=== PATIENT | female | born 1945 | race Caucasian/White ===

== ENCOUNTER → 2019-05-31 | Outpatient (CLI) | payer OTHER ==
[~2019-05-31] MED LIST: ASPIR 8181 MG PO; ASPIRIN; BRILINTA90 MG PO; CIPRO250 M1 PO; CLARITIN10 M2; CLARITIN10 MG PO; CO Q-10100 M1 PO; EYE DROPS FOR GLAUCO; FISH OIL 1,0001 EAC5; FISH OIL 1,2001 EAC5 PO; IMDUR 30 MG TAB30 M1 PO; LIPITOR 20 MG T20 M1 PO; LOPRESSOR25 PO; LUMIGAN2.5 M1 OP; NITROGLYCERIN0.4 MG SUBLING; ONE DAILY MUL400 MCG PO; OSTEOPOROSIS MED; PRILOSEC20 MG PO; TRIAMCINOLONE A80 G2 TOP; VITAMINS
--- NOTE | 2019-05-31 16:34 | CARDNUC ---
[place] [address] CARDIAC NUCLEAR IMAGING REPORT Name: AMANDEEP DARDEN Room: [facility]#: [id number] Admission: 05/31/19 Attend Phys: Magaly Tidwell Discharge: Date of : 45 Date of Service: 05/31/19 1634 Report #: [id number] THIS REPORT FOR: //name// APPROVED REPORT Imaging Protocol: Rest Tc-99m/Stress Tc-99m 1 day Study performed: 05/31/2019 08:00:00 Indication: CAD s/p PCI Patient Location: Out-Patient Room #: 5 Stress Tech: Tim Dumont Stress Nurse: Renu Elise RN NM Tech:ROBERT Lopez Ht: 5 ft 5 in Wt: 154 lbs BSA: 1.77 m2 BMI: 25.62 Medical History Medical History: CAD s/p stent, HTN, Hyperlipidemia. Medications: Atorvastatin, Isosorbide, Metoprolol, Nitrostat, ASA 81 mg. Allergies: morphine Cardiac Risk Factors: Age, FHX of CAD, HTN, Hyperlipidemia. Previous Cardiac Procedures: PCI Pretest Chest Pain Characteristics: No chest pain Exercise History: Physically active Physical Disabilities: Knees Meds Held (24 hrs): Isosorbide, Metoprolol, Nitrostat. Resting Data Rest SPECT myocardial perfusion imaging was performed in supine position 30 minutes following the intravenous injection of 11.3 mCi of Tc-99m Sestamibi. Time of rest injection: 809 Date: 05/31/2019 The images were gated to evaluate regional wall motion and calculate left ventricular ejection fraction. Administration Route: IV Administration Site: Right AC Exercise Stress At peak stress, the patient was injected intravenously with 33.3mCi of Tc-99m Sestamibi. Time of stress injection: 944 Date: 05/31/2019 Administration Route: [place] [address] CARDIAC NUCLEAR IMAGING REPORT Name: AMANDEEP DARDEN Room: [facility]#: [id number] Admission: 05/31/19 Attend Phys: Magaly Tidwell Discharge: Date of : 45 Date of Service: 05/31/19 1634 Report #: [id number] Administration Site: Right AC Gated Stress SPECT was performed 30 minutes after stress injection. The images were gated to evaluate regional wall motion and calculate left ventricular ejection fraction. Prone imaging was performed. Stress Test Details Stress Test: Exercise stress testing was performed using a Rory protocol. HR Max Heart Rate (APMHR): 146 bpm Resting HR: 67 bpm Target HR (85% APMHR): 124 bpm Max HR Achieved: 152 bpm % of APMHR: 104 Recovery HR: 77 bpm BP Resting BP: 138/74 mmHg Max BP: 218/105 mmHg Recovery BP: 134/97 mmHg ECG Resting ECG: Sinus Rhythm, LBBB Stress ECG: Sinus Tachycardia ST Change: None Arrhythmia: None Recovery ECG: Sinus Rhythm, LBBB Recovery ST Change: None Recovery Arrhythmia: None Clinical Reason for Termination: Completed protocol, Maximal effort, Target HR achieved. Stress Symptoms: Leg Fatigue, Dyspnea. Exercise duration: 7 min 31 sec Exercise capacity: 9.40 METs Overall Exercise Capacity for Age: Superior The patient tolerated status Rory protocol exercise without significant difficulty. The patient had no cardiac symptoms with standard Rory protocol exercise. Nurse Comments A 74 year old active female presented for Rory Protocol Nuclear Stress test r/t s/p PCI. Patient tolerated treadmill well. Exercise capacity - Superior. Recovery unremarkable. Patient was escorted by staff to Nuclear Medicine for images. [place] [address] CARDIAC NUCLEAR IMAGING REPORT Name: AMANDEEP DARDEN Room: [facility]#: [id number] Admission: 05/31/19 Attend Phys: Magaly Tidwell Discharge: Date of : 45 Date of Service: 05/31/19 1634 Report #: [id number] complaints at that time. Stress ECG Conclusion Baseline 12-lead EKG showed sinus rhythm with left bundle branch block. EKGs obtained during and post exercise showed sinus rhythm and sinus tachycardia with no significant ST or T wave changes when compared baseline. There were no stress-induced arrhythmias. Study Quality Study: Good Artifact: No artifact Study Data At rest, the left ventricular ejection fraction was 71%.. Post stress, the left ventricular ejection was 72%.. TID = 0.90. Perfusion Normal left ventricular perfusion. Wall Motion Normal left ventricular wall motion. Nuclear Conclusion ECG Findings: negative for ischemia Clinical Findings: negative for ischemia Nuclear Findings: negative for ischemia Exercise Capacity: normal Left Ventricular Function: normal Risk Study: low Myocardial perfusion images show no defect to suggest infarct or ischemia. Left ventricular systolic function appears normal on gated studies. This is a low risk study. <Conclusion> Baseline 12-lead EKG showed sinus rhythm with left bundle branch block. EKGs obtained during and post exercise showed sinus rhythm and sinus tachycardia with no significant ST or T wave changes when compared baseline. There were no stress-induced arrhythmias. <ELECTRONICALLY SIGNED> By: Mark Ray MD, FACC 05/31/19 1634 1634 1634 Mark Ray MD, FACC /INF
== END ==
LOC: M.NUC 12-15 11:50 → M.CRD 05-24 09:00 → M.NUC 05-24 10:00
DX: I25.10 Atherosclerotic heart disease of native coronary artery without angina pectoris (principal); I10 Essential (primary) hypertension; E78.5 Hyperlipidemia, unspecified; Z79.899 Other long term (current) drug therapy; Z95.5 Presence of coronary angioplasty implant and graft; Z88.5 Allergy status to narcotic agent

== ENCOUNTER → 2019-07-27 | Outpatient (CLI) | payer OTHER | LOC: M.RAD 10:34 | DX: Z12.31 Encounter for screening mammogram for malignant neoplasm of breast (principal) ==

== ENCOUNTER → 2019-08-01 | Outpatient (CLI) | payer OTHER | LOC: M.ULTRA 13:46 | DX: N63.21 Unspecified lump in the left breast, upper outer quadrant (principal) ==

== ENCOUNTER → 2019-09-07 | Outpatient (CLI) | payer OTHER | LOC: M.RAD 14:27 | DX: M51.36 Other intervertebral disc degeneration, lumbar region (principal); M85.88 Other specified disorders of bone density and structure, other site ==

== ENCOUNTER → 2020-05-16 | Outpatient (CLI) | payer OTHER | LOC: M.RAD 10:05 | PROVIDERS: ATTEND Registered Nurse Diabetes Educator | DX: S92.355A Nondisplaced fracture of fifth metatarsal bone, left foot, initial encounter for closed fracture (principal); S99.922A Unspecified injury of left foot, initial encounter; M19.072 Primary osteoarthritis, left ankle and foot; X58.XXXA Exposure to other specified factors, initial encounter; Y93.89 Activity, other specified; Y92.89 Other specified places as the place of occurrence of the external cause; Y99.8 Other external cause status ==

== ENCOUNTER → 2021-07-01 | Outpatient (CLI) | payer OTHER | LOC: M.RAD 06-21 15:49 | PROVIDERS: ATTEND Internal Medicine | DX: Z12.31 Encounter for screening mammogram for malignant neoplasm of breast (principal); M81.0 Age-related osteoporosis without current pathological fracture; Z78.0 Asymptomatic menopausal state ==

== ENCOUNTER 2021-09-19 12:22 | Observation (INO) | payer OTHER ==
[~2021-09-19] VITALS: Ht 165.1 cm; Wt 74.8 kg
[2021-09-19] VITALS (18 sets, daily range): BP systolic 101–159; BP diastolic 53–89
--- NOTE | ~2021-09-19 | H ---
[address] [address] HISTORY AND PHYSICAL Name: BRENNON DARDENADALBERTO FORD Room: [address] Shweta Esquivel#: [id number] Admission: 09/19/21 Attend Phys: Edgar Wilkinson MD, Discharge: 09/20/21 Date of : 45 Report #: [id number] THIS REPORT FOR: cc: Joe Barnard MD, Meng MD [facility],Medical Records Staff ~ Please refer to the History and Physical performed in the physician's office. By: 1036Medical Records Staff MALCOLM /SNEHAL
[2021-09-19 13:11] LABS: HEMATOCRIT 45.1 % (37.0-47.0); HEMOGLOBIN 14.9 gm/dL (12.0-15.0); MCH 29.6 pg (26.0-34.0); MCV 89.8 fL (80.0-100.0); MPV 8.1 fl. (7.2-11.1); RBC 5.02 mil/uL (4.20-5.00); RDW-CV 14.1 % (10.5-14.5); WBC 6.2 thou/uL (4.0-11.0)
[2021-09-19] MEDS ORDERED: ASA81BEC PO (13:21)
[2021-09-19] MEDS ORDERED: TOPROL XL25 MG PO (13:25)
[2021-09-19] MEDS ORDERED: DORZOLAMIDE-TI1 EACH EA. EYE (13:28)
[2021-09-19] MEDS ORDERED: VITAMIN D310 MCG PO (13:30)
[2021-09-19 13:33] LABS: APTT 26.8 Seconds (25.0-31.3); PROTIME 10.5 Seconds (9.20-11.50)
[2021-09-19 14:36] LABS: ALBUMIN 3.9 g/dL (3.4-5.0); ALKALINE PHOSPHATASE 162 U/L (46-116); ANION GAP 10 mmol/L (7-16); BUN 11 mg/dL (7-18); CHLORIDE 106 mmol/L (98-107); CO2 26 mmol/L (21-32); CREATININE 0.6 mg/dL (0.6-1.3); GLUCOSE 105 mg/dL (70-99); SGOT 34 U/L (15-37); SODIUM 142 mmol/L (136-145); TOTAL BILIRUBIN 1.1 mg/dL (<0.1-1.0); TOTAL PROTEIN 7.4 g/dL (6.4-8.2); TRIGLYCERIDE 79 mg/dL (<150); VLDL 16 mg/dL (<40)
[2021-09-19 14:37] LABS: SERUM ASSESSMENT Clear
[2021-09-19 14:43] LABS: CALCIUM 9.1 mg/dL (8.5-10.1); CHOLESTEROL 153 mg/dL (<200); HDL CHOLESTEROL 75 mg/dL (>40); SGPT < 6 U/L (30-65)
[2021-09-19 14:46] LABS: LDL CHOLESTEROL 63 mg/dL (<100)
--- NOTE | 2021-09-19 16:16 | EKG ---
[place] [address] ELECTROCARDIOGRAM REPORT Name: AMANDEEP DARDEN Room: [address] M.R.#: [id number] Admission: 09/19/21 Attend Phys: Magaly Tidwell Discharge: Date of : 45 Date of Service: 09/19/21 1337 Report #: [id number] THIS REPORT FOR: //name// [facility] Test Date: 2021-09-19 Test Time: 13:37:40 Pat Name: AMANDEEP DARDEN Department: Room: [facility] Gender: F 1[address] [employer] On Web Press: : 1945 Requested By: Edgar Wilkinson Order Number: [id number] Yessi MD: Edgar iWlkinson Measurements Intervals [place] Rate: 67 P: 33 CA: 213 QRS: -65 QRSD: 133 T: 62 QT: 430 QTc: 454 Interpretive Statements Sinus rhythm Borderline prolonged CA interval Atypical left bundle branch block Compared to ECG 12/21/2015 14:19:13 Intraventricular conduction delay now present Electronically Signed On 09-19-2021 16:16:44 SLITTING AND SHIPPING SUPERVISOR by Edgar Wilkinson [email or web address] <ELECTRONICALLY SIGNED> By: Edgar Wilkinson MD, [facility] 09/19/21 1616 1337 1337 Edgar Wilkinson MD, [facility] /EPI
--- NOTE | 2021-09-19 17:28 | CARD ---
[address] [address] CARDIAC CATH REPORT Name: AMANDEEP DARDEN Room: [address] M.RDamion#: [id number] Admission: 09/19/21 Attend Phys: Edgar Wilkinson MD, Discharge: Date of : 45 Report #: [id number] THIS REPORT FOR: cc: Joe Barnard MD, Meng MD Holkins, John M. MD [facility] ~ APPROVED REPORT Study performed: 09/19/2021 13:53:23 Patient Details Patient Status: Out-Patient Room #: The patient is a 76 year-old female Event Personnel Mark Ray Fire Captain Marine, Randa Bah RN RN, Susu Alvares Scrub, Blanca Maddox RTR Monitor, Edgar Wilkinson Wire Communications Engineer Procedures Performed Art Access - R femoral artery Left Heart Cath w/or w/o Coronaries KELI Place w/wo Plasty Single OM Hemostasis w/ Angioseal Indication Unstable angina Risk Factors Hypercholesterolemia, Hypertension Previous Procedures/Diagnoses Previous PCI Admission/Lab Medications/Medications given during procedure 0.9% Sodium Chloride IV 75 ml per hr, Oxygen Nasal cannula 2 l per min, Lidocaine Subcut 15 ml, Angiomax IV 10.5 ml, Angiomax Drip IV 25.13 ml per hr, Plavix PO 300 mg Procedure Narrative The patient was brought electively to the Cardiac Catheterization Laboratory and was prepped and draped in a sterile manner. The right femoral was infiltrated with 2% Lidocaine subcutaneous anesthesia. IV conscious sedation was used throughout procedure with appropriate monitoring and was performed in the presence [place] [address] CARDIAC CATH REPORT Name: KATALINAAMANDEEP Room: [address] Shweta Esquivel#: [id number] Admission: 09/19/21 Attend Phys: Edgar Wilkinson MD, Discharge: Date of : 45 Report #: [id number] who was an independent trained observer other than the physician performing the procedure. A Lamar 6 FR sheath was inserted into the right femoral artery. Coronary angiography was performed using coronary diagnostic catheters. The right coronary system was accessed and visualized with a Diagnostic 6 Fr JR 4 catheter. The left coronary system was accessed and visualized with a Diagnostic 6 Fr JL 4 catheter. The left ventricle was accessed and visualized with a Diagnostic 6 Fr Pigtail catheter. Left ventricular/Aortic Valve gradient assessed via catheter pullback. Left ventriculogram was performed in HENDERSON projection. Pre-demployment femoral angiogram was performed . Closure device was deployed with a Fr Angioseal STS 6Fr. The patient tolerated the procedure well and there were no complications associated with the procedure. There was no hematoma. Intraoperative Conscious Sedation Sedation start time: 14:36 Case end Time: 15:07 Fentanyl 25 mcg Versed 1 mg Fluoro Time: 6.8 minutes Dose: DAP 13908 cGycm2 681 mGy Contrast Type and Amount: Visipaque 190 mL Coronary Angiography The patient's coronary anatomy is right dominant. Diagnostic Cath Left Main 0% narrowing LAD 30% proximal and mid LAD narrowing with widely patent stents Circumflex 30% proximal narrowing with 80% stenosis of the prominent first marginal branch of the nondominant circumflex Right Coronary Large dominant vessel with 30% proximal narrowing and 40% tubular posterior descending branch narrowing Left Ventriculography The left ventricle is normal in size with normal contractility. The left ventricular ejection fraction is estimated to be 60%. Left ventricular wall motion abnormalities are not present. There is no mitral insufficiency. Hemodynamics The aortic pressure is 126/61 mmHg with a mean of 88 mmHg. The left ventricular pressure is 108/-1 mmHg with a [place] [address] CARDIAC CATH REPORT Name: KATALINAAMANDEEP FORD [address] [id number] Admission: 09/19/21 Attend Phys: Edgar Wilkinson MD, Discharge: Date of : 45 Report #: [id number] ventricular end diastolic pressure is 3 mmHg. PCI Technique Lesion Anticoagulation was achieved with Angiomax Drip. Patient was preloaded with Angiomax IV 10.5 ml. Percutaneous coronary intervention was performed on the first obtuse marginal branch segment. The lesion stenosis prior to intervention was 80% with VICK 3 flow. A 6FR LAUNCHER EBU 3.5 Guide Catheter was used to engage the left ostium. A IG: BMW 190cm Interventional Guidewire was used to cross the lesion. BALLOON DILATION A Balloon catheter Trek RX 2.25 X 8 was inserted and inflated up to 12.00atm for 18seconds. Additional Inflation: 14.00atm for 13seconds. STENT DEPLOYMENT A drug-eluting stent [place] RX Stent 2.5X8mm was inserted and inflated up to 12.00atm for 9seconds. Additional Inflation: 14.00atm for 8seconds. Additional Inflation: 16.00atm for 9seconds. Final angiography reveals 10 % stenosis with VICK 3 flow. Conclusion 1. Significant coronary artery disease characterized by the following: A 30% proximal and mid LAD narrowing with widely patent LAD stents B 30% proximal circumflex with 80% stenosis of the proximal portion of the prominent first marginal branch C dominant right coronary with 30 percent proximal and 40% tubular posterior descending branch narrowings 2. Normal left-sided hemodynamic study 3 Normal left ventricular systolic function, estimated ejection fraction 60% 4. Successful PCI with deployment of a drug-eluting stent at the site of 80% first marginal stenosis with 10% residual narrowing and VICK-3 flow to [place] [address] CARDIAC CATH REPORT Name: AMANDEEP DARDEN Room: [address] Shweta Esquivel#: [id number] Admission: 09/19/21 Attend Phys: Edgar Wilkinson MD, Discharge: Date of : 45 Report #: [id number] Recommendations Cardiac Risk Reduction Program Aggressive Medical Therapy Medications Administered Clopidogrel Diagnostic Cath Approved by: Mark Ray MD Date/Time: 09/19/2021 17:23:59 <ELECTRONICALLY SIGNED> By: Edgar Wilkinson MD, [facility] 09/19/21 1727 26 1727Joisabella Wilkinson MD, FAC /INF
--- NOTE | 2021-09-19 19:38 | NUR ---
PT ADMITTED TO ROOM 209 VIA BED FROM STEAM SHOVEL OPERATOR AT APPROXIMATELY 1700. PT ORIENTED TO ROOM AND CALL LIGHT. ADMISSION ASSESSMENT AND HISTORY CHARTED. HOME MEDICATIONS RECONCILED. ACCESS INTO RIGHT GROIN-CATH SITE C/D/I NO HEMATOMA NOTED. POST CARDIAC CATH ASSESSMENT AND VITALS CHARTED. IVF. DENIES ANY PAIN OR SHORTNESS OF BREATH. ON RA SAT UPPER 90'S. TRACING SR BBB AND FIRST DEGREE ON THE HRBP. PT ON BEDREST 2009. PT INSTRUCTED ON IMMOBILIZATION OF RLE-COMMUNICATES UNDERSTANDING. PROBABLE DISCHARGE HOME RENALDO 09/20. CALL LIGHT WITHIN REACH. WILL CONTINUE PLAN OF CARE.
[2021-09-20] VITALS: BP 127/68; BP 99/46
--- NOTE | 2021-09-20 03:28 | NUR ---
PT ALERT ORIENTED. UP AD PADMAJA IN ROOM. LOAN UNDERWRITER TRACING V-PACED WITH UNDERLYING A-FLUTTER. AMIO QTT AT 1MG/HR. MILLS WITH CLEAR YELLOW PLACED ON DAYS. R ELSIE LAUREANO C/D/I.
--- NOTE | 2021-09-20 03:31 | NUR ---
PT ALERT ORIENTED, UP AD PADMAJA IN ROOM. NS AT 100MLS/HR. LAP HAND TOOL TRACING SR. Brian LAUREANO C/D/I.
[2021-09-20 05:49] VITALS: BP 102/52
[2021-09-20 06:14] LABS: ALBUMIN 2.9 g/dL (3.4-5.0); CALCIUM 8.1 mg/dL (8.5-10.1); CREATININE 0.6 mg/dL (0.6-1.3); POTASSIUM 3.3 mmol/L (3.5-5.1); TOTAL BILIRUBIN 1.2 mg/dL (<0.1-1.0); TOTAL PROTEIN 5.6 g/dL (6.4-8.2)
[2021-09-20] MEDS ORDERED: CLOPIDOGREL75 MG PO (08:33)
[2021-09-20 08:46] VITALS: BP 158/69
--- NOTE | 2021-09-20 11:09 | EKG ---
[place] [address] ELECTROCARDIOGRAM REPORT Name: AMANDEEP DARDEN Room: [address] M.R.#: [id number] Admission: 09/19/21 Attend Phys: Magaly Tidwell Discharge: Date of : 45 Date of Service: 09/19/21 1628 Report #: [id number] THIS REPORT FOR: //name// [facility] Test Date: 2021-09-19 Test Time: 16:28:03 Pat Name: AMANDEEP DARDEN Department: Room: [facility] Gender: F Clerk Specialist: : 1945 Requested By: Edgar Wilkinson Order Number: [id number] Reading MD: Edgar Wilkinson Measurements Intervals [place] Rate: 79 P: 34 ND: 223 QRS: -55 QRSD: 136 T: 47 QT: 424 QTc: 487 Interpretive Statements Sinus rhythm Prolonged ND interval Nonspecific IVCD with LAD; probable atypical left bundle branch block Compared to ECG 09/19/2021 13:37:40 Intraventricular conduction delay persists Left bundle branch block still suggested Electronically Signed On 09-20-2021 11:09:09 OXYGRAPH OPERATOR by Edgar Wilkinson [email or web address] <ELECTRONICALLY SIGNED> By: Edgar Wilkinson MD, FAC 09/20/21 1109 1628 1628 Edgar Wilkinson MD, FAC /EPI
[2021-09-20 11:11] VITALS: BP 158/69
[2021-09-20 12:14] VITALS: BP 173/68
--- NOTE | 2021-09-20 12:41 | D ---
[address] [address] DISCHARGE SUMMARY Name: AMANDEEP DARDEN Room: [address] Shweta Esquivel#: [id number] Admission: 09/19/21 Attend Phys: Edgar Wilkinsno MD, Discharge: Date of : 45 Report #: [id number] THIS REPORT FOR: cc: Joe Barnard MD, Meng MD Holkins,Edgar Lion MD [facility] ~ DATE OF DISCHARGE: 09/20/2021 FINAL DISCHARGE DIAGNOSES: 1. Unstable angina. 2. Coronary artery disease. 3. Status post prior myocardial infarction. 4. Hypertension. 5. Hyperlipidemia. 6. Status post PCI to the first marginal branch of the circumflex. PROCEDURES: On 09/19/2021 -- left heart catheterization, left ventriculography, selective coronary arteriography, percutaneous coronary intervention with deployment of drug-eluting stent in the first marginal branch of the circumflex. HOSPITAL COURSE: The patient is a very pleasant 76-year-old female with a history of remote acute coronary syndrome interrupted by PCI to the LAD and circumflex in 2016. Recently, she has noted recrudescence of chest pain similar to her prior anginal discomfort. Episodes have become more frequent and more severe. In this context, and with multiple risk factors including hypertension, hyperlipidemia, I elected to proceed with cardiac catheterization on 09/19/2021. That study revealed significant coronary disease characterized by the following: A. 30% proximal and mid LAD narrowing with widely patent LAD stents. B. 30% proximal circumflex narrowing with 80% stenosis of the prominent 1st marginal branch of the nondominant circumflex. C. 30% proximal and 40% posterior descending branch narrowings in the dominant right coronary artery. Given this data, I elected to proceed with PCI, placing one 2.5 x 8 Tolley drug-eluting stent in the first marginal branch of the circumflex with 10% residual narrowing and VICK 3 flow to the distal vessel. The patient did well post-procedurally. There was good hemostasis at the right femoral site of catheterization. Laboratory on 09/20 revealed sodium 141, potassium 3.3, BUN 9, creatinine 0.6. There was good hemostasis and the patient ambulated in [place] [address] DISCHARGE SUMMARY Name: AMANDEEP DARDEN Room: [address] Shweta Esquivel#: [id number] Admission: 09/19/21 Attend Phys: Edgar Wilkinson MD, Discharge: Date of : 45 Report #: [id number] DISCHARGE MEDICATIONS: She was continued on her medications and discharged to home on the following medications: Clopidogrel 75 mg with 300 mg loading dose given; Imdur 30 mg daily; Lumigan eyedrops one drop every evening; omega 3 fatty acids 1200 mg tablets, 2400 mg total daily; Claritin 10 mg daily; atorvastatin 20 mg at bedtime; p.r.n. sublingual nitroglycerin; aspirin 81 mg b.i.d., metoprolol succinate 25 mg daily; dorzolamide/timolol one drop in each eye b.i.d., vitamin D3 or cholecalciferol 2000 units daily. I will plan to see the patient in followup on 09/23/2021 at our [facility] office. Thus, the patient is discharged home in stable condition on the aforementioned medications with followup as iterated above. <ELECTRONICALLY SIGNED> By: Edgar Wilkinson MD, [facility] 09/20/21 1241 0905 0941Edgar Wilkinson MD, [facility] /nt
[2021-09-20 13:45] VITALS: BP 173/68
--- NOTE | 2021-09-20 14:06 | NUR ---
WENT OVER DISCHARGE WITH PT. ALL UESTIONS ANSWERED. CATH SITE R GROIN C/D/I, NO S/S HEMATOMA OR BLEEDING. PT VERBALIZES UNDERSTANDING OF ALL INSTRUCTION.
--- NOTE | 2021-09-22 13:10 | EKG ---
[place] [address] ELECTROCARDIOGRAM REPORT Name: AMANDEEP DARDEN Room: [address] M.R.#: [id number] Admission: 09/19/21 Attend Phys: Magaly Tidwell Discharge: 09/20/21 Date of : 45 Date of Service: 09/20/21 1309 Report #: [id number] THIS REPORT FOR: //name// [facility] Test Date: 2021-09-20 Test Time: 13:09:25 Pat Name: AMANDEEP DARDEN Department: Room: [facility] Gender: F Bolt Threader: ADAM : 1945 Requested By: Edgar Wilkinson Order Number: [id number] Reading MD: Mark aRy Measurements Intervals [place] Rate: 64 P: 2 SD: 211 QRS: -63 QRSD: 120 T: 70 QT: 423 QTc: 437 Interpretive Statements Sinus rhythm Nonspecific IVCD with LAD Anterolateral infarct, age indeterminate Compared to ECG 09/19/2021 16:28:03 Myocardial infarct finding now present First degree AV block no longer present Electronically Signed On 09-22-2021 13:10:36 STEELSCOPE OPERATOR by Mark Ray [email or web address] <ELECTRONICALLY SIGNED> By: Mark Ray MD, FACC 09/22/21 1310 1309 1309 Mark Ray MD, FACC /EPI
== END 2021-09-20 14:22 | disposition home or self-care (01) ==
LOC: M.CL 12:22 → M.2W 15:11 → M.TBA-ER 15:11 → M.2W 17:02
PROVIDERS: ADMIT Internal Medicine; ATTEND Internal Medicine
DX: I25.110 Atherosclerotic heart disease of native coronary artery with unstable angina pectoris (principal); Z20.822 Contact with and (suspected) exposure to COVID-19; I10 Essential (primary) hypertension; E78.5 Hyperlipidemia, unspecified; I25.2 Old myocardial infarction; Z85.818 Personal history of malignant neoplasm of other sites of lip, oral cavity, and pharynx; Z79.82 Long term (current) use of aspirin; Z79.899 Other long term (current) drug therapy